=== PATIENT | female | born 2000 | race Caucasian/White ===

== ENCOUNTER 2024-08-11 15:36 | Emergency (ER) | payer SELFPAY ==
[~2024-08-11] VITALS: Ht 157.5 cm; Wt 72.0 kg
[2024-08-11 16:40] VITALS: TEMP 98.8
[2024-08-11] MEDS: SODIUM CHLORIDE 0.9% 1,000 ML IV ONE (19:42)
[2024-08-11] MEDS: KETOROLAC TROMETHAMINE 30 MG/ML VIAL IM ONE (19:42)
[2024-08-11] MEDS: KETOROLAC TROMETHAMINE 30 MG/ML VIAL IVP ONE (19:43)
[2024-08-11 19:47] LABS: BASOPHILS % (AUTO) 0.6 % (0.0-2.0); HEMATOCRIT 40.6 % (36-46); HEMOGLOBIN 13.8 g/dL (12.0-16.0); LYMPHOCYTES # (AUTO) 1.7 K/uL (1.0-4.8); LYMPHOCYTES % (AUTO) 16.6 % (22.0-44.0); MEAN CORPUSCULAR HEMOGLOBIN 31.4 pg (26.0-34.0); MEAN CORPUSCULAR HGB CONC 34.1 G/dL (31.0-37.0); MEAN CORPUSCULAR VOLUME 92 fL (80-100); MONOCYTES # (AUTO) 0.6 K/uL (0.1-1.0); MONOCYTES % (AUTO) 5.4 % (2.0-9.0); NEUTROPHILS # (AUTO) 7.8 K/uL (1.8-7.7); NEUTROPHILS % (AUTO) 75.4 % (40.0-70.0); PLATELET COUNT (AUTO) 255 K/uL (150-450); RED BLOOD CELL COUNT(AUTO) 4.41 MIL/uL (4.00-5.20); RED CELL DISTRIBUTION WIDTH 12.4 % (11.5-14.5); WHITE BLOOD COUNT (AUTO) 10.4 K/uL (4.5-11.0)
[2024-08-11 20:18] LABS: ANION GAP 9 mmol/L (8-16); CALCIUM, TOTAL 9.8 mg/dL (8.8-10.5); CARBON DIOXIDE 27 mmol/L (22-29); CHLORIDE 105 mmol/L (98-107); CREATININE 0.83 mg/dL (0.60-1.30); GLOMERULAR FILTR. RATE CALC > 60 mL/min (>60); GLUCOSE,RANDOM 92 mg/dL (70-110); HCG,QUANTITATIVE < 1 mIU/mL (0-6); POTASSIUM 3.8 mmol/L (3.5-5.1); SODIUM SERUM 141 mmol/L (136-145); UREA NITROGEN, BLOOD 12 mg/dL (7-18)
[2024-08-11 20:30] VITALS: BP 118/64; PULSE 68; RESP 17; O2SAT 98
== END 2024-08-11 21:07 | disposition home or self-care (01) ==
LOC: EMS 16:19
DX: R51.9 Headache, unspecified (principal)
CPT/HCPCS: 99283; 96374; 96361; 80048; 84702; 84703; 85025; 36415; J1885; J7030